=== PATIENT | female | born 1970 | race African-American/Black ===

== ENCOUNTER 2016-10-19 13:37 | Emergency (ER) | payer MEDICAID ==
[~2016-10-19] VITALS: Ht 160 cm; Wt 136.0 kg
[2016-10-19] MEDS ORDERED: KETOROLAC 60MG/2ML VIAL IM ONE (18:30)
[2016-10-19 19:13] VITALS: BP 152/94
== END 2016-10-19 19:14 | disposition home or self-care (01) ==
LOC: ER 19:04
DX: M54.32 Sciatica, left side (principal); I10 Essential (primary) hypertension; Z88.6 Allergy status to analgesic agent
CPT/HCPCS: 81025; 96372; 99283; J1885